=== PATIENT | female | born 1970 | race Hispanic/Latino ===

== ENCOUNTER 2020-08-01 18:28 | Emergency (ER) | payer SELFPAY ==
[~2020-08-01] VITALS: Ht 160 cm; Wt 73.5 kg
== END 2020-08-01 18:58 | disposition home or self-care (01) ==
LOC: ER 18:55
DX: U07.1 COVID-19 (principal); R50.9 Fever, unspecified; R06.02 Shortness of breath; R05 Cough
CPT/HCPCS: 99282